=== PATIENT | male | born 1955 | race Caucasian/White ===

== ENCOUNTER 2017-09-26 15:53 | Emergency (ER) | payer MEDICARE ==
[2017-09-26 15:55] VITALS: BP 145/92; PULSE 100; RESP 14; TEMP 98.1; O2SAT 94
[2017-09-26] MEDS ORDERED: HYDR-2374 PO (17:46)
--- NOTE | 2017-09-26 17:49 | PD ---
HPI Chief Complaint: Medication Refill Request Time Seen by Provider: 17:08 Travel History International Travel<30 days: No Contact w/Intl Traveler<30days: No Traveled to known affect area: No History of Present Illness HPI 62 YO M with PMH of lung CA, chronic back pain presents to the ED for medication refill. The patient states that he is visiting from [place]. He states that he neglected to get refills from his physician before leaving town. States he is currently undergoing chemotherapy, last treatment 3 weeks ago. He denies any change in his chronic pain symptoms. He denies fever, chills, numbness, tingling, weakness of the extremities, saddle anesthesia, incontinence. He states that his last dose of medication was last night before bed. [facility] Social History Tobacco Use: No Allergies-Medications (Allergen,Severity, Reaction): Coded Allergies: No Known Allergies (Unverified , 09/26/17) Reported Meds & Prescriptions Reported Meds & Active Scripts Active Hydrocodone-Acetaminophen 10-300 Tab 1 Tab PO Q6H PRN Review of Systems Except as stated in HPI: all other systems reviewed are Neg Physical Exam Narrative GENERAL: Well-nourished, well-developed white male in no acute distress. Wearing 2 L by nasal cannula. SKIN: Focused skin assessment warm/dry. Medication port in the left chest, well -healed without signs of infection. HEAD: Normocephalic. EYES: No scleral icterus. No injection or drainage. NECK: Supple, trachea midline. No JVD or lymphadenopathy. CARDIOVASCULAR: Regular rate and rhythm without murmurs, gallops, or rubs. RESPIRATORY: Breath sounds clear and equal bilaterally. No accessory muscle use. GASTROINTESTINAL: Abdomen soft, non-tender, nondistended. MUSCULOSKELETAL: No cyanosis, or edema. 5/5 strength in the bilateral upper and lower extremities. BACK: No obvious deformity. No CVA tenderness. Mild tenderness to palpation in the midline in the mid thoracic area. Mild tenderness to palpation of the surrounding musculature. Data Data Last Documented VS Vital Signs Date Time Temp Pulse Resp B/P (MAP) Pulse Ox O2 Delivery O2 Flow Rate FiO2 09/26/17 18:01 09/26/17 15:55 98.1 100 14 94 Orders Orders Acetamin-Hydrocod 325-10 Mg ([place] 10-32 (09/26/17 18:00) Ed Discharge Order (09/26/17 17:56) [facility] Medical Decision Making Medical Screen Exam Complete: Yes Emergency Medical Condition: Yes Differential Diagnosis Medication refill versus chronic pain versus drug seeking behavior versus other Narrative Course 62 YO M with PMH of lung CA, chronic back pain presents to the ED for medication refill. The patient states that he is visiting from [place]. He states that he neglected to get refills from his physician before leaving [facility]. States he is currently undergoing chemotherapy, last treatment 3 weeks ago. He denies any change in his chronic pain symptoms. He denies fever, chills, numbness, tingling, weakness of the extremities, saddle anesthesia, incontinence. He states that his last dose of medication was last night before bed. He has a medication bottle that is indeed a prescription for 10 mg Lortab 4 times a day. Filled on 08/26 with a 30 day supply. Vitals reviewed. Physical exam is unremarkable. [facility]CSE reveals no previous prescriptions in [place]. I discussed the patient with Dr. Jack. We agreed to prescribe # 15 10 mg Lortab and administer a single dose in the emergency room. I discussed the difficulties with narcotic pain medications in the [facility] and advised the patient that it is unlikely that he would be able to receive additional narcotic pain meds in the emergency room. He states that he plans to return to [place] on Monday. He is stable and discharged home. Diagnosis Primary Impression: Encounter for medication refill Referrals: Primary Care Physician Patient Instructions: Chronic Back Pain (ED), General Instructions Additional Instructions: Rest, hydrate. Return to normal, gentle activities as tolerated. You will not be able to receive more pain medications to the emergency room. Arrange future pain medication prescriptions with your primary care provider or pain management provider. Return to the ED for any urgent or emergent medical condition. Med/Other Pt SpecificInfo: Prescription(s) given Scripts Hydrocodone-Acetaminophen (Hydrocodone-Acetaminophen) 10-300 Tab 1 TAB PO Q6H Y for PAIN, #15 TAB 0 Refills Prov: Tarik Jack MD 09/26/17 Disposition: 01 DISCHARGE HOME Condition: Stable Vee Choi Sep 26, 2017 17:49
[2017-09-26] MEDS ORDERED: ACETAMINOPHEN/HYDROcodone 325 MG/10 MG TAB PO ONE (18:00)
== END 2017-09-26 18:01 | disposition home or self-care (01) ==
LOC: NEPK 15:53
DX: Z76.0 Encounter for issue of repeat prescription (principal); M54.9 Dorsalgia, unspecified; G89.29 Other chronic pain; Z85.118 Personal history of other malignant neoplasm of bronchus and lung
CPT/HCPCS: 99281